=== PATIENT | male | born 1985 | race African-American/Black ===

== ENCOUNTER 2023-02-02 21:40 | Emergency (ER) | payer MEDICAID ==
[~2023-02-02] VITALS: Ht 198.1 cm; Wt 98.0 kg
[2023-02-02 21:56] VITALS: BP 140/67; PULSE 76; RESP 18; TEMP 98.8; O2SAT 98
[2023-02-02] MEDS ORDERED: IBUPROFEN 600MG TABLET PO ONE (22:15)
[2023-02-03] MEDS ORDERED: NAPR-1176 MT (00:34)
== END 2023-02-03 01:22 | disposition home or self-care (01) ==
LOC: ER 21:40
DX: S69.91XA Unspecified injury of right wrist, hand and finger(s), initial encounter (principal); X58.XXXA Exposure to other specified factors, initial encounter; Y93.89 Activity, other specified; Y92.89 Other specified places as the place of occurrence of the external cause; Y99.8 Other external cause status
CPT/HCPCS: 29125; 73110; 73130; 99284